=== PATIENT | female | born 1980 | race Caucasian/White ===

== ENCOUNTER 2025-02-04 17:13 | Emergency (ER) | payer BC, SELFPAY ==
[2025-02-04 17:24] VITALS: BP 123/75; PULSE 76; TEMP 36.7; O2SAT 100; BMI 27.9
--- NOTE | 2025-02-04 17:49 | ED_ITS ---
HPI - URI/Sore Throat General Chief Complaint: Upper Respiratory Infection Stated Complaint: Upper Respiratory Infection Time Seen by Provider: 02/04/25 17:39 Source: patient History of Present Illness HPI Narrative: Patient is a 44-year-old female presents to the ER with concerns of bilateral ear pain right greater than left and nasal congestion. She denies any measurable fever. Symptoms started today. She did take a dose of Motrin earlier in the day. She denies any nausea vomiting or diarrhea. No significant cough or shortness of breath. Patient appears in no distress and has an axillary visit to her daughter who is being seen for similar upper respiratory symptoms. MD elicited complaint: Reports nasal congestion and sinus pain Severity: mild Able to tolerate fluids by mouth: Yes Exacerbating factors: Reports nothing Context: Reports sick contacts Associated symptoms: Reports nasal congestion; Denies stiff neck, cough or rash Related Data Allergies Allergy/AdvReac Type Severity Reaction Status Date / Time No Known Drug Allergies Allergy Verified 02/04/25 17:27 Review of Systems ROS Constitutional Denies: fever, chills, change in weight or fatigue Eyes Denies: change in vision Ears, nose, mouth, and throat Reports: ear pain and post nasal drip; Denies: throat pain, neck pain or ear discharge Cardiovascular Denies: chest pain Respiratory Denies: shortness of breath, cough or wheezing Gastrointestinal Denies: abdominal pain, nausea or vomiting Genitourinary Denies: painful urination Musculoskeletal Denies: back pain Integumentary/Breast Denies: rash or itching Neurological Denies: headache Psychiatric Denies: anxiety PFSH PFSH Social History Little interest or pleasure in doing things: not at all Feeling down, depressed, or hopeless: not at all Exam Narrative Exam Narrative: Nurse's notes and vital signs reviewed and patient is not hypoxic. General: The patient appears well and in no apparent distress. Patient is resting comfortably in cart. Skin: Warm, dry, no pallor noted. Head: Normocephalic, atraumatic, mild maxillary sinus tenderness, no frontal or ethmoid sinus tenderness Neck: Supple, trachea midline, no tenderness, no lymphadenopathy Ears, nose, mouth, and throat: TMs are clear, normal light reflex, no auricle or tragal tenderness. Oral mucosa is moist, no posterior oropharynx erythema or hypertrophy, postnasal drip noted uvula is midline Cardiovascular: Regular rate and rhythm Respiratory: Patient is in no distress, no accessory muscle use, lungs are clear to auscultation, no wheezing, rales, or rhonchi. Chest wall: No tenderness Musculoskeletal: Normal ROM, no tenderness, no swelling GI: Normal bowel sounds, no tenderness to palpation, no masses appreciated. No rebound, guarding, or rigidity noted. Neurological: Alert and oriented ?4 Psychiatric: Cooperative Constitutional Vital Signs, click to edit/add: Last Vital Signs Temp 98.0 F 02/04/25 17:24 Pulse 76 02/04/25 17:24 Resp 18 02/04/25 17:24 BP 123/75 02/04/25 17:24 Pulse Ox 100 02/04/25 17:24 O2 Del Method Room Air 02/04/25 17:24 Course Vital Signs Vital signs: Vital Signs Temperature 98.0 F 02/04/25 17:24 Pulse Rate 76 02/04/25 17:24 Respiratory Rate 18 02/04/25 17:24 Blood Pressure 123/75 02/04/25 17:24 Pulse Oximetry 100 02/04/25 17:24 Oxygen Delivery Method Room Air 02/04/25 17:24 Temperature 98.0 F 02/04/25 17:24 Pulse Rate 76 02/04/25 17:24 Respiratory Rate 18 02/04/25 17:24 Blood Pressure 123/75 02/04/25 17:24 Pulse Oximetry 100 02/04/25 17:24 Oxygen Delivery Method Room Air 02/04/25 17:24 MDM - URI/Sore Throat MDM Narrative Medical decision making narrative: Patient presents with concerns of bilateral ear pain described as a fullness no auricle tragal tenderness exam is benign without canal inflammation or middle ear effusion symptoms likely related to her upper respiratory symptoms of nasal congestion and postnasal drip. She denies any dental pain. Swabs for influenza and COVID were obtained as she presents with a child who has similar upper respiratory symptoms. Patient's swabs for influenza and COVID are negative, her daughter who is present with similar symptoms starting the day earlier is positive for influenza A. We discussed her ears without evidence of otitis media or otitis externa. She likely may have influenza A as well given sinus symptoms but is early on with symptoms starting this morning. We discussed the importance of Tylenol Motrin for symptom control hoya-oxo-bgllyas decongestions and if needed Mucinex. To take as directed. Mother thankful had no further concerns or questions The patient is to followup with primary care physician in next 2-3 days or to return to the emergency department should any of the signs or symptoms worsen or new symptoms develop. Patient had questions answered. The patient agrees with the following Diagnosis and Treatment plan and the patient will be discharged home. Differential Diagnosis Differential diagnosis: Likely upper respiratory infection, sinusitis, viral infection and influenza Lab Data Labs: Lab Results 02/04/25 Range/Units 17:35 Influenza Type A Ag Negative Influenza Type B Ag Negative SARS-CoV-2 Ag (CV2AG) Negative (NEGATIVE) Discharge Plan Discharge Chief Complaint: Upper Respiratory Infection Clinical Impression: Upper respiratory infection, Otalgia, Influenza Patient Disposition: Home, Self-Care Time of Disposition Decision: 18:33 Condition: Good Print Language: Cameroonian Instructions: Influenza (ED), Upper Respiratory Infection (ED) Referrals: CASSY DAO [Primary Care Provider, [facility]] - 1 week
[2025-02-04 18:21] LABS: SARS-CoV-2 Ag NEGATIVE (NEGATIVE)
--- OUTSIDE RECORDS SUMMARY | 2025-02-04 18:21 | XMS_ITS | Clinical Summary ---
Author Organization [employer] [facility] Address [id number] [address] [place] [address] Care Team Providers Care Gluing Machine Operator Electronic Name Role Phone Chica Montano MD Primary Care Provider + Allergies No known active allergies Medications No known medications Social History Tobacco UseTypesPacks/DayYears UsedDateSmoking Tobacco: NeverSmokeless Tobacco: NeverAlcohol UseStandard Drinks/WeekCommentsYes0 (1 standard drink = 0.6 oz pure alcohol)sociallyChildcareAnswerDate HfhcxofjMyfjitjroKmdabnd37/12/2019Employment AnswerDate LwcdejdrUcpbuzjnyzTqnymfy18/12/2019CommentsNoSex and Gender InformationValueDate RecordedSex Assigned at BirthNot on fileLegal SexFemale 09/20/2014 11:50 AM EDTGender IdentityNot on fileSexual OrientationNot on file Last Filed Vital Signs Vital SignReadingTime TakenCommentsBlood Arehfttl063/9009 7:22 PM EDT Dosfx1433 7:22 PM NKCWbrmalizaiu67.6 ??C (99.7 ??F)11/11/2020 7:22 PM EDTRespiratory Empe3311 7:22 PM EDTOxygen Jbiqcmdhtf135%11/11/2020 7:22 PM EDTInhaled Oxygen Concentration--[place]30.8 kg (145 lb)11/11/2020 7:22 PM EDT Uliqbx736.2 cm (5' 7 )11/11/2020 7:22 PM EDTBody Mass Index22.71011/11/2020 7:22 PM EDT Plan of Treatment DateTypeDepartmentCare Team (Latest Contact Info)Zcwkhockwpd95/23/2026 10:00 AM ESTOffice Visit [facility] [address] [place] [address] Edith Doyle, LOGGING EQUIPMENT OPERATOR-WATER FILTRATION TECHNICIAN [address] [place], [place] [address] Health MaintenanceDue DateLast DoneCommentsDepression Peahhzkqb53/26/1992Tobacco Zljnitxaw26/26/1992Adult BMI Gxgxhqunz10/26/1998DTaP,Tdap and Td Vaccines (1 - Tdap)09/09/1998Pap Smear09/09/2000Influenza Uaqbiry6410/16/2024 Medical Devices Not on file Insurance Care Teams Team MemberRelationshipSpecialtyStart DateEnd Date Chica Montano MD PCP - GeneralPediatrics11/11/20
--- OUTSIDE RECORDS SUMMARY | 2025-02-04 18:21 | XMS_ITS | Clinical Summary ---
Author Organization [facility] Address [address] [place] [address] Care Team Providers Care Sap Bpc Architect Name Role Phone Unavailable Primary Care Provider Unavailabl e Social History Tobacco UseTypesPacks/DayYears UsedDateSmoking Tobacco: NeverSmokeless Tobacco: Never Tobacco Cessation:Counseling Given: Not Answered Alcohol UseStandard Drinks/WeekCommentsNever0 (1 standard drink = 0.6 oz pure alcohol)CommentsUnknownSex and Gender InformationValueDate RecordedSex Assigned at BirthNot on fileLegal MwjKjdxxq23/15/2023 6:59 PM EDTGender Identity Not on fileSexual OrientationNot on file Last Filed Vital Signs Vital SignReadingTime TakenCommentsBlood Weibtcwc200/68002/25/2022 12:00 PM EST Pulse--Temperature--Respiratory Rate--Oxygen Saturation--Inhaled Oxygen Concentration--Kdjqsg30.9 kg (147 lb 6.4 oz)02/25/2022 12:00 PM NWNYoiamt495.2 cm (5' 7 )02/25/2022 12:00 PM ESTBody Mass Index23.0902/25/2022 12:00 PM EST Plan of Treatment Not on file Insurance
--- OUTSIDE RECORDS SUMMARY | 2025-02-04 18:21 | XMS_ITS | Data Portability ---
Author Organization [facility] CASSY WHITTINGTON MD, PHD, [facility] Address [address] [place] [address] Assessment No assessment recorded. Plan of Treatment Reminders Order DateSubmit DateProviderLast Modified ByOrganization DetailsLast Modified TimeDetailsAppointmentsNone recorded.LabCMP, serum or [id number] [facility], [address] [place] [address], [address], 98 05:01:40CBC w/ auto diffc-[facility], [address] [place] [address], [address], 10/15/2024 05:01:40lipid panel, serumc-[facility], [address] [place] [address], [address], 97 05:01:40urinalysis, wucuuxej96[facility], [address] [place] [address], [address], 403/31/2022 16:11:27Referral None recorded.ProceduresNone recorded.SurgeriesNone recorded.ImagingNone recorded.Medication OrdersZithromax Z-Attila 250 mg ztsoup21 [facility] [id number], [address] [place], [address], 07/05/2024 08:17:03prednisone 20 mg /[facility] [id number], [address] [place] [address], [address], 08/18/2024 08:17:04sertraline 50 mg vonbhv83[facility] [id number], [address] [place] [address], [address], 01/19/2024 10:59:31sertraline 50 mg ghdrhh64[facility] [id number], [address] [place] [address], [address], 07/14/2023 12:49:29sertraline 50 mg nnwldt47[facility] [id number], [address] [place] [address], [address], 01/28/2023 16:04:54 Patient TargetsNo targets recorded. Patient Instructions Encounter Date Encounter Id Patient Instructions Last Modified By Organization Details Last Modified Time 07/14/2023 [id number] Patient continues to do well and we did discuss keeping everything the same which she feels is a good idea. She is not interested in weaning herself off the medication. cschermerhorn Not available 10/02/2023 10:03:51 Reason for Referral None Reported. Problems Name Problem SNOMED Code Status Onset Date Resolution Date Notes Provider Name and Address Organization Details Recorded Time Anxiety 33080170 Active 04/10/2022 Cassy Dao MD [address] [place], [address], [place] - CASSY DAO MD, PHD04/10/2022 13:39:18Depressive disorder 56698063Hnqpkb81/24/2023wendy Dao MD [address] [place], [address], [place] - CASSY DAO MD, PHD04/10/2022 13:39:40History of alcoholism 032294627Yyzwwx61/24/2023Cwendy Dao MD [address] [place], [address], [place] - CASSY DAO MD, PHD04/10/2022 13:39:58 Problem Notes None recorded. Procedures Surgical History Date Name Laterality Status Provider Name and Address Organization Details Recorded Time 02/25/2018 Suture/Staple removal completedCassy Dao MD [address] [place], [address], [place] - CASSY DAO MD, PHD07/07/2018 19:29:35 Imaging Results None recorded. Procedure Notes None recorded. Medical Equipment None Reported. Allergies No known drug allergies Medications Name Sig Start Date Stop Date Status Note LastModified by Organization Details LastModified Time amoxicillin 500 mg capsule 2completedNot AvailableNot AvailableNot Availableprednisone 20 mg tabletTake 1 tablet every day by oral route as directed for 3 days.01/19/2024 5completedNot AvailableNot AvailableNot AvailableZithromax Z-Attila 250 mg tabletTAKE 2 TABLETS (500 MG) BY ORAL ROUTE ONCE DAILY FOR 1 DAY THEN 1 TABLET (250 MG) BY ORAL ROUTE ONCE DAILY FOR 4 DAYS/5completedNot AvailableNot AvailableNot Availablephentermine 37.5 mg tabletTake 1 tablet every day by oral route as directed for 30 days.5activeNot AvailableNot AvailableNot Availablesertraline 25 mg tabletTake 0.5 tablets every day by oral route as directed for 30 days.2activeNot AvailableNot AvailableNot Availablesertraline 50 mg tabletTake 1 tablet every day by oral route as directed for 90 days.5activeNot AvailableNot AvailableNot Available amoxicillin 875 mg-potassium clavulanate 125 mg ltjyij7602/25/2018completedNot AvailableNot AvailableNot AvailableID NOW COVID-19 Test KitTEST DIRECTED TODAYactiveNot AvailableNot AvailableNot Available Vitals Date Recorded Body height Heart rate Respiratory rate Body temperature Body mass index (BMI) Body weight Oxygen saturation Systolic And Diastolic Provider Name and Address Organization Details Last Updated DateTime 4 170.18 cm 99.5 /min 12 /min 99.5 [degF] 27.3 kg/m2 14762.0 7 g 98 % 122/80 mm[Hg] Cassy diaz MD [address] [place], [address], [place] - CASSY DAO MD, PHD 4 09:54:05 Date Recorded Body height Heart rate Respiratory rate Body temperature Body mass index (BMI) Body weight Oxygen saturation Systolic And Diastolic Provider Name and Address Organization Details Last Updated DateTime 3 170.18 cm 83 /min 12 /min 97.7 [degF] 15.3 kg/m2 46686.9 7 g 97 % 109/61 mm[Hg] Cassy diaz MD [address] [place], [address], [place] - CASSY DAO MD, PHD 3 15:59:09 Date Recorded Body height Heart rate Respiratory rate Body temperature Body mass index (BMI) Body weight Oxygen saturation Systolic And Diastolic Provider Name and Address Organization Details Last Updated DateTime 4 170.18 cm 83 /min 12 /min 97.6 [degF] 28 kg/m2 76597.0 3 g 98 % 116/70 mm[Hg] Cassy diaz MD [address] [place], [address], [place] - CASSY DAO MD, PHD 5 11:31:57 Social History Question Answer Notes LastModified by Organization D etails LastModified Time Tobacco Smoking Status Never Smoker regina meyer, [place] - CASSY DAO MD, PHD02/25/2018 10:12:05Do You Have An Advance Directive?NocschermerhornInformation not zfokgtust69/15/2022re You Blind Or Do You Have Difficulty Seeing?Jmhuztbtl3Evreoeluyvr not available 02/25/2018Is Blood Transfusion Acceptable In An Emergency?Yescschermerhorn Information not bkcywzmlj81/15/2022What Is Your Level Of Caffeine Consumption? ModeratecschermerhornInformation not endjirjru13/15/2022In The 14 Days Before Symptom Onset, Have You Had Close Contact With A Laboratory-confirmed COVID-19 While That Case Was Ill?NocschermerhornInformation not ijjjszpry90/15/2022In The 14 Days Before Symptom Onset, Have You Had Close Contact With A Person Who Is Under Investigation For COVID-19 While That Person Was Ill?Nocschermerhorn Information not wjspsrahg47/15/2022Have You Been To An Area Known To Be High Risk For COVID-19?NocschermerhornInformation not kqiswqtiv23/15/2022re You Deaf Or Do You Have Serious Difficulty Hearing?Ujucwzcui9Fqupatreqwh not available 02/25/2018What Type Of Diet Are You Following?REGULARcschermerhornInformation not ayrhdmzfy79/15/2022Have You Processed Blood Or Body Fluids From An Ebola Virus Disease Patient Without Appropriate PPE?NocschermerhornInformation not ngeoistxo98/15/2022Do You Reside In Or Have You Traveled To An Area Where Ebola Virus Transmission Is Active?NocschermerhornInformation not jagfspiob40/15/2022 What Is The Highest Grade Or Level Of School You Have Completed Or The Highest Degree You Have Received?[id number] not nnpwalfhb08/16/2019How Many Days Of Moderate To Strenuous Exercise, Like A Brisk Walk, Did You Do In The Last 7 Days?7krxlleo0Tsujbaojsul not umziwuzul53/11/2019On Those Days That You Engage In Moderate To Strenuous Exercise, How Many Minutes, On Average, Do You Exercise?2twljvbn5Dafgthlwqhh not dhmdgblxa90/11/2019Have There Been Any Changes To Your Family Or Social Situation?NocschermerhornInformation not xqpcnruig10/15/2022What Is The Fluoride Status Of Your Home?Fluoridated cschermerhornInformation not nbqexymwk86/15/2022Have You Recently Or Are You Planning To Travel To An Area With Zika Virus?NocschermerhornInformation not uugipvpib32/15/2022What Was The Date Of Your Most Recent Tobacco Screening? 4cschermerhornInformation not nyoviotjz54/24/2025Do You Have Any Pets? YescschermerhornInformation not avvgkthyl12/15/2022What Is Your Relationship Status?MarriedcschermerhornInformation not isaryttpp26/15/2022 You Use Your Seat Belt Or Car Seat Routinely?YescschermerhornInformation not available 01/29/2022re You Sexually Active?YescschermerhornInformation not available 01/29/2022 You Have Smoke And Carbon Monoxide Detectors In Your Home?Yes cschermerhornInformation not dztpuvjzj79/15/2022re You Passively Exposed To Smoke?NocschermerhornInformation not pgjqvirsd79/15/2022 You Have Difficulty Walking Or Climbing Stairs?Jzgaggzyj3Wvpsvbqiqje not iwvkpsjci66/11/2019 Sex: Unknown Functional Status Question Answer Note LastModified by Organization D etails LastModified Time Do you use any illicit or recreational drugs? No cschermerhornInformation not /15/2022 you or have you ever used any other forms of tobacco or nicotine?NocschermerhornInformation not available 01/29/2022What is your level of alcohol consumption?NonecschermerhornInformation not mtnfiysga59/17/2024re you currently employed?YescschermerhornInformation not arcjtvvxg38/15/2022 you have transportation difficulties?Nocschermerhorn Information not yogxxhdxa32/15/2022re you able to walk independently without assistance or assistive devices?QKUNIAVDXmvrcwtk7Eseqluolghg not available 02/25/2018Do you have difficulty doing errands alone?Nelusgryl0Npxwzochyic not oxmuevxak06/11/2019Are you able to care for yourself independently?Yes cschermerhornInformation not ybpnzlgwp49/15/2022 you have difficulty dressing, bathing, grooming, or toileting?Ynucfghog3Tjlhflphqqs not myogythuy88/11/2019 What is your exercise level?OccasionalcschermerhornInformation not available 01/29/2022 Mental Status Question Answer Note LastModified by Organization D etails LastModified Time Do you feel stressed (tense, restless, nervous, or anxious, or unable to sleep at night)? NJ[address]-0 cschermerhornInformation not jfbcjzawn70/06/2023Do you have difficulty concentrating, remembering or making decisions?Alrqbvgiz4Wwrtwgeytdg not fdwjpmfuo26/11/2019 Family History Relationship Description Onset Age of this Age Resolved Age Notes LastModified by Organization Details LastModified Time Father Essential hypertension jpmzgwo0Ycf ocinjbrol24/11/2019 10:11:42MotherEssential hpdrhqbzipndkgyxiwi4Qga xgfylzhbw99/11/2019 10:11:48Maternal GrandmotherFamily history of malignant ysxayiopzjrqvoa5Fxu qnybdjnrb29/11/2019 10:12:01Maternal GrandfatherFamily history of malignant qwwgrbhvuvrqbqc6Rwv adbbllyuo05/11/2019 10:12:01Maternal GrandfatherAlcoholismcschermerhornNot aekqsjuyp53/14/2023 16:07:41 Medical History Condition Response Coronary Artery Disease N Other N Gout N Kidney Stones N Blood Diseases N Hyperthyroidism N Blood Transfusion N COPD N Depression N Anxiety Disorder N Muscle, Joint, or Bone Problems N Obesity N Vision or Eye Problems N Arthritis N Infertility N Polyps N Mental Disorder N Cancer N Stroke N Varicosities N Fibromyalgia N Headaches N Kidney Disease N Heart Problems N Ear or Hearing Problems N Hospitalizations N Skin Problems N Eating Disorder N MRSA exposure N Constipation N Tuberculosis N AIDS/HIV N Asthma N Hepatitis N Pulmonary Embolism N Chronic Ear Infections N Chicken Pox N Autism Spectrum Disorder (ASD) N Thrombophilias N Breast Cancer N Hospital Admission Other Than N Hypothyroidism N Lung Disease N Developmental or Behavioral Disorders N Defects or Inherited Disease N Breast Problem N Difficulty Swallowing N Anesthesia Complications N Meniere's disease N Head Injury/Concussion N Congenital Anomalies N Endometriosis N Bladder or Kidney Problems N High Cholesterol N Liver Disease N Allergies/Hayfever N Thyroid Problems N GI Problems N ADD/ADHD N Anemia N Mental Illness N Ovarian Cancer N Diabetes N Bedwetting N Seizures/Epilepsy N Congestive Heart Failure (CHF) N Eczema N Diverticulitis N Abuse/Domestic Violence N Reflux/GERD N Heart Disease N Pre-Eclampsia N Hypertension N Osteoporosis N Gynecological HistoryNo gynecological history recorded. Obstetrics History GPAL:G 2 P 0 0 0 2 Type Value Living 2 Total 2 Past Encounters Encounter ID Performer Location Encounter Start Date Encounter Closed Date Diagnosis/Indication Diagnosis SNOMED-CT Code Diagnosis ICD10 Code Diagnosis IMO Codes Diagnosis Note [id number] Cassy Dao MD Main Office [address] [place] [address] 02/25/2018 09:39:09 02/25/2018 10:16:27 Dog bite of finger 053318571 S61.259D Laceration of fogrgv457909826Y31.210A Removal of yhpfmb89589725C46.02 [id number] Dao[facility] [address] [place] [address] 03/02/2018 10:09:14003/02/2018 10:51:41Adult health jifxorldomi774713657F42.01 Dog bite of onzkxb725222542C89.259D Finger joint fuehc397806148J89.649 [id number] Dao [place] [facility] [address] [place] [address] [place] [address] 07/13/2018 13:25: 14:11:09Acute axkufsbrxym283550514E19.9 Congestion of nasal bzbbp46788791B85.81 Posterior wyfzjwnjsa31406747I94.82 [id number] Dao, [place] [facility] [address] [place] [address] 11/07/2021 14:11: 15:18:15Adult health zmfkcdbxdnb979161354M55.01 Mixed anxiety and depressive nchrfvct092331474U03.8 Alcohol ofukcblsok78020988Y49.20 [id number] Dao [place] [facility] [address] [place] [address] 11/21/2021 10:16:411 10:44:57Mixed anxiety and depressive disorder 242323311Q73.8 Depressive kkfpxqxi81982832Z39.9 Stress due to family iiuitpe047499513923211R45.8 [id number] aDo [place] [facility] [address] [place] [address] 01/14/2022 09:37:19103/16/2021 09:59:18Mixed anxiety and depressive disorder 140725889F54.8 History of alcohol ulnfo359960044Z53.10 Influenza vaccination qtxcuvfd771539277R05.21 [id number] Dao, [facility] [address] [place] [address] 04/08/2022 09:40:51004/08/2022 10:12:51Mixed anxiety and depressive disorder 828516919I73.8 Alcohol vdiainksrn93040129R96.20 Sleep pattern xbqmeaynuiy93085018X84.9 [id number] Strausshorn, [facility] [address] [place] [address] 07/03/2022 10:06:41007/03/2022 10:47:58Mixed anxiety and depressive disorder 569553496B68.8 History of alcohol hutdd213459148G11.10 [id number] Ethan HutsonDusty, MDMain Office [address] [place] [address] 10/02/2022 10:56:03010/02/2022 13:31:47Depressive mryufdcr22198570Y97.9 Mixed anxiety and depressive vosheaig366003553N63.8 History of alcohol lvpoz111202680W90.10 [id number] Hutsonrmerhorn, [place] [facility] [address] [place] [address] 11/18/2022 10:22:4611/18/2022 10:30:29[facility] lqqblcvbbsg867117636G07.01 Mixed anxiety and depressive tvomcpik674192554N36.8 History of iunsxftthc836640197P52.21 [id number] MollyTanner Dusty, [place] [facility] [address] [place] [address] 07/14/2023 11:36:52007/14/2023 12:27:09Mixed anxiety and depressive disorder 900198001O66.8 History of lnhitlinto280702733Z43.21 [id number] MollyTanner Dao, [facility] [address] [place] [address] 01/19/2024 10:38:3912 10:59:49Acute maxillary cfppzpgqw86012317Y79.00 Mixed anxiety and depressive ticajsva670586368V74.8 Adult health yquvuvxyims076480696X39.01 Health Concerns Section Related Observation LastModified by Organization Detai ls LastModified Time None Recorded Concern Status LastModified by Organization Details LastModified Time None Recorded Advance Directives Directive N: Payers Insurance Date Sequence Insurance Name Policy Number Policy Heard Covered Member ID Heard Member ID Guarantor Name 12/02/2024 1 [place] [id number] Jadon Minich [id number] Kelly Minich 10/23/2024 [place][id number] [id number] Minich [id number] [id number] Mini Notes Date Note Type Note Provider Name and Address Orga nization Details Recorded Time 11/18/2022 text/html Anxiety/Depressi onReported by Patient Generalized Anxiety DisorderReported by Patient Patient presents to the office for her annual wellness exam as well as for her anxiety/depression. She does decline the influenza vaccination. She does see Dr. Morelos for her [place] Inspector issues and is scheduled for her mammogram annually in the Spring. She sees the eye doctor annually at [facility] in [place] and the dentist at [facility] [place] in [place]. She is doing well overall. She does not drink alcohol anymore and feels that things have greatly improved with the family including her children. She feels that her zoloft has also really made a difference. She does not get upset or on edge like she use to and feels that she is a more pleasant person to be around.Cassy Dao MD [address] [place], [address], [place] - CASSY DAO MD, PHD01/28/2023 16:13:01007/14/2023text/html Anxiety/DepressionReported by Patient Generalized Anxiety DisorderReported by Patient Patient presents to the office for evaluation of her anxiety/depression and alcoholic dependence for which she has been doing well for the last couple of years. She does not drink alcohol and has found that it has made her life much better. She feels that her medicine also makes a huge difference and that it is at a good dose. Her marriage is going well and the kids are doing well. Her son has graduated from high school and working.Cassy Dao MD [address] [place], [address], [place] - CASSY DAO MD, PHD10/02/2023 10:04:0801/19/2024text/html Anxiety/DepressionReported by Patient Patient presents to the office for her annual wellness exam as well as for evaluation of a sinus infection and her depression. She is a recovered alcoholic and doing well. She has found that treatingher depression has made a world of difference in her life. She did go to last week where she wastreated for a sinus infection with prednisone 5 mg for 5 days. It did help some but the discharge did not resolve and has gotten thicker and greener. She now has a lot sinus pressure.Cassy Dao MD [address] [place], [address], [place] - CASSY DAO MD, PHD04/10/2024 11:49:18 OBGyn Episode No OBEpisode recorded.
[2025-02-04 18:46] VITALS: BP 132/87; PULSE 78; O2SAT 98
== END 2025-02-04 18:46 | disposition home or self-care (01) ==
PROVIDERS: Emergency Provider Emergency Medicine; PCP Internal Medicine
DX: J10.1 Influenza due to other identified influenza virus with other respiratory manifestations (principal); H92.03 Otalgia, bilateral
CPT/HCPCS: 87804; 87811; 99283; 99284